=== PATIENT | female | born 1985 | race Caucasian/White ===

== ENCOUNTER 2019-11-12 12:41 | Outpatient (REF) | payer OTHER, SELFPAY | END 2019-11-12 12:42 | disposition home or self-care (01) | LOC: HO.LAB 12:41 | PROVIDERS: PCP Internal Medicine; Visit Provider Internal Medicine | DX: Z20.828 Contact with and (suspected) exposure to other viral communicable diseases (principal) | CPT/HCPCS: 36415; 87635 ==

== ENCOUNTER 2019-12-15 14:22 | Outpatient (REF) | payer OTHER, SELFPAY | END 2019-12-15 14:23 | disposition home or self-care (01) | LOC: HO.LAB 14:22 | PROVIDERS: Visit Provider Internal Medicine | DX: Z20.828 Contact with and (suspected) exposure to other viral communicable diseases (principal) | CPT/HCPCS: C9803; U0003 ==

== ENCOUNTER 2020-02-09 15:53 | Outpatient (REF) | payer OTHER, SELFPAY | END 2020-02-09 15:54 | disposition home or self-care (01) | LOC: HO.LAB 15:53 | PROVIDERS: Visit Provider Internal Medicine | DX: Z20.828 Contact with and (suspected) exposure to other viral communicable diseases (principal) | CPT/HCPCS: C9803; U0003 ==

== ENCOUNTER 2020-05-14 19:20 | Emergency (ER) | payer OTHER, SELFPAY ==
--- NOTE | ~2020-05-14 | CT_ITS ---
EXAMINATION: CT HEAD WITHOUT CONTRAST CT CERVICAL SPINE WITHOUT CONTRAST CLINICAL INFORMATION: Possible fall. COMPARISON: None TECHNIQUE: Multidetector volumetric CT imaging of the head and cervical spine is acquired without intravenous contrast administration. Postprocessing is performed at a dedicated workstation. Multiplanar reformatted images are submitted. This CT scan was performed using dose optimization techniques as appropriate to a performed exam including the following: *Automated exposure control. *Adjustment of mA and/or kV according to patient size (this includes techniques or standardized protocols for targeted exams were dose is matched to indication/reason for exam; i.e. extremities or head). *Use of iterative reconstruction technique. DLP: 1282 mGy-cm FINDINGS: CT HEAD: The ventricles and sulci are normal. There is no evidence of acute intracranial hemorrhage, midline shift, mass effect, acute territorial infarction or abnormal extra-axial fluid collection. [id number] matter differentiation is well preserved. No abnormal parenchymal attenuation. The osseous calvarium is intact. Visualized paranasal sinuses and mastoid air cells are well aerated. Calvarial soft tissues are grossly unremarkable without evidence of significant swelling or hematoma. CT CERVICAL SPINE: Patient's neck is rotated resulting in asymmetrical scan sections. The vertebral body heights and alignment are maintained. Atlantoaxial and atlanto-occipital alignments are normal. Posterior elements are intact and in normal alignment. Mild degenerative changes are noted at C5-C6 with mild narrowing of the intervertebral disc space and minimal marginal hypertrophic endplate spurring. No evidence of tight central canal or neural foraminal stenosis. The airway is patent. There is no evidence of prevertebral soft tissue swelling. The thyroid gland and lung apices are unremarkable. CT/CT cervical spine wo con IMPRESSION: 1. No evidence of acute intracranial abnormality. 2. No evidence of acute fracture or subluxation in the cervical spine.
[2020-05-14 19:24] VITALS: BP 136/84; PULSE 84; RESP 16; O2SAT 97; BMI 25.1
--- NOTE | 2020-05-14 20:03 | ED.GENADULT ---
HPI - General Adult General Chief complaint: ETOH/Substance Use Stated complaint: etoh Time Seen by Provider: 05/14/20 23:02 Source: patient Mode of arrival: ambulatory Limitations: no limitations History of Present Illness HPI narrative: Patient brought to ED for alcohol intoxication. Father found patient on the ground. Does not know if patient fell.. Patient self admits to drinking. Is not suicidal or homicidal. Related Data Allergies Allergy/AdvReac Type Severity Reaction Status Date / Time No Known Allergies Allergy Unverified 10/28/19 19:47 [No Known Allergies*] Review of Systems Review of Systems: Yes all other systems are reviewed and are negative Constitutional: Constitutional: Reports as per HPI and Reports no additional constitutional complaints Eyes: Eyes: Reports as per HPI and Reports no additional eye complaints ENT: Reports system reviewed and no additional complaints, except as documented and Reports as per HPI Cardiovascular: Cardiovascular: Reports as per HPI and Reports no additional cardiovascular complaints Respiratory: Respiratory: Reports as per HPI and Reports no additional respiratory complaints Gastrointestinal: Gastrointestinal: Reports as per HPI and Reports no additional gastrointestinal complaints Musculoskeletal: Musculoskeletal: Reports no additional musculoskeletal complaints and Reports as per HPI Neurologic: Reports system reviewed and no additional complaints, except as documented and Reports as per HPI Psychiatric: Psychiatric: Reports no additional psychiatric complaints and Reports as per HPI [facility] Past Medical History Medical History (Updated 05/14/20 @ 19:28 by Ginny Orellana) EtOH dependence Social History Social History Advance Directives: No Physical Exam Vital Signs: Vital Signs: Last Vital Signs Pulse 84 05/14/20 19:24 Resp 16 05/15/20 00:01 BP 136/84 05/14/20 19:24 Pulse Ox 97 05/14/20 19:24 Body Mass Index 25.1 Const: Other: Alcohol on breath General: cooperative, healthy appearing, comfortable, no acute distress, well developed, alert, awake and Physically active Orientation/consciousness: patient oriented x3 HENMT: Head: Yes normal to inspection, Yes No palpable skull fracture present, Yes normocephalic, Yes atraumatic, No abrasion, No Nava's sign, No contusion, No cranial bruits, No hematoma, No laceration, No occipital foramen tenderness, No palpable skull fracture, No raccoon eyes, No scalp lesion, No scalp tenderness, No Temporal artery tenderness present and No periorbital ecchymosis Eyes: General: appearance normal, both eyes and all related structures Neck: Neck: Yes normal visual inspection, Yes full ROM, Yes no lymphadenopathy, Yes no meningeal signs, Yes trachea midline, Yes supple and No tender Chest: Chest palpation & inspection: normal inspection of the chest and normal palpation of entire chest wall Resp: Effort & Inspection: normal respiratory effort and able to speak in complete sentences Auscultation: clear to auscultation bilaterally Cardio: Jugular venous distension: no JVD Heart sounds: S1 normal heart sound present and S2 normal heart sound present GI: Inspection: Yes normal to inspection and No abdominal wall ecchymosis Palpation (GI): Soft to palpation, not firm, nontender, no guarding and not rigid : General: No CVA tenderness and Yes no CVA tenderness Back/Spine/Pelvis: Back: no CVA tenderness, No CVA tenderness and No back tenderness Skin: General skin exam: no rashes or lesions noted and elasticity normal Neuro: Other: Alcohol on breath but not intoxicated. General: patient oriented x3, no meningeal signs and CN's II-XI intact bilaterally Cranial nerves: Yes CN's II-XII intact bilaterally Extrem: General: Yes normal to inspection and Yes full ROM Psych: Appearance: grossly normal, well kempt and not disheveled Course Course Course Narrative: Patient refusing blood draw for alcohol level. Patient willing to give urine. EMS note stating patient was found on the ground. Will do head CT C-spine make sure there is no brain bleed Reevaluation(s) Reevaluation #1: Patient images came back negative for neck fracture or brain bleed. 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 Patient alert oriented x3 with normal gait. Reevaluation #2: Patient is alert oriented x3 with normal gait. Patient's boyfriend Cheng came to the ED and picked her up. Patient does not want detox. Medical Decision Making MDM Narrative Medical decision making narrative: Alcohol abuse Lab Data Labs: Lab Results 05/14/20 05/14/20 05/14/20 Range/Units 19:57 19:57 19:57 Urine Color YELLOW Urine Appearance CLEAR Urine pH 5.5 (5.0-8.0) Ur Specific [place] <= 1.005 (1.005-1.025) Urine Protein NEG (NEG-TRACE) MG/DL Urine Glucose (UA) NEG (NEG) MG/DL Urine Ketones NEG (NEG) MG/DL Urine Blood TRACE (NEG) Urine Nitrite NEG (NEG) Ur Leukocyte Esterase NEG (NEG) Urine RBC 0-2 (0) /HPF Urine WBC 0 (0-4) /HPF Ur Squamous Epith Cells NONE /LPF Urine Bacteria NONE /LPF Urine Test NEGATIVE (NEGATIVE) Urine Opiates Screen Not Detected (Not Detect) Ur Barbiturates Screen Not Detected (Not Detect) Ur Phencyclidine Scrn Not Detected (Not Detect) Ur Amphetamines Screen Not Detected (Not Detect) U Benzodiazepines Scrn Not Detected (Not Detect) Urine Cocaine Screen Not Detected (Not Detect) U Marijuana (THC) Screen POSITIVE H (Not Detect) Discharge Plan Discharge Clinical Impression: Alcohol abuse Patient Disposition: Home, Self-Care Instructions: Abuse of Alcohol (ED) Additional Instructions: Return to the ED for any suicidal/homicidal ideation, auditory/visual hallucinations, or or any other complaints. Interventions: ED Discharge Assessment Last Done: 05/15/20 00:02 Discharge Date/Time: 05/15/20 00:04 Print Language: [place]ese
[2020-05-14 20:06] LABS: Appearance Urine CLEAR; Color Urine YELLOW; Glucose Urine UA NEG (NEG); Leukocyte Esterase Urine NEG (NEG); Nitrite Urine NEG (NEG); PH 5.5 (5.0-8.0); Specific Gravity - Urine <= 1.005 (1.005-1.025); Urine Blood TRACE (NEG); Urine Ketones NEG (NEG); Urine Protein NEG (NEG-TRACE)
[2020-05-14 20:08] LABS: UPreg QC Valid YES; Urine Pregnancy NEGATIVE (NEGATIVE)
[2020-05-14 20:15] LABS: RBC Urine 0-2 /HPF (0); WBC Urine 0 /HPF (0-4)
--- NOTE | 2020-05-14 20:36 | PC.NURSE ---
PT AMBULATORY WITH UNSTEADY GAIT. PT TRIED TO LEAVE, WALKED DOWN HALLWAY TOWARDS [place], BROUGHT BACK BY RN. PT ASKED TO LEAVE SEVERAL TIMES. PLAN IS TO LET PT CALL FOR [facility] FOLLOWING CT SCAN OF HEAD. BOYFRIEND CALLED, ASKING ABOUT PATIENT.
--- NOTE | 2020-05-14 21:18 | MHC.RECOVSUP ---
patient did not respond when tried to offer services.
[2020-05-14 21:19] LABS: Amphetamine Screen Urine Not Detected (Not Detect); Barbiturates, Urine Not Detected (Not Detect); Benzodiazepines Screen Urine Not Detected (Not Detect); Cannabinoid Screen Urine POSITIVE (Not Detect); Cocaine Screen Urine Not Detected (Not Detect); Opiate Screen Urine Not Detected (Not Detect); Phencyclidine Screen Urine Not Detected (Not Detect)
--- NOTE | 2020-05-14 21:27 | PC.NURSE ---
PT SLEEPING, HAS BEEN MORE COOPERATIVE SINCE SHE WAS MADE AWARE OF PLAN TO DISCHARGE FOLLOWING CT SCAN.
[2020-05-15 00:01] VITALS: RESP 16
== END 2020-05-15 00:04 | disposition home or self-care (01) ==
PROVIDERS: Physician Assistant; Emergency Provider Internal Medicine
DX: F10.20 Alcohol dependence, uncomplicated (principal); Y90.9 Presence of alcohol in blood, level not specified
CPT/HCPCS: 70450; 72125; 80307; 81001; 81025; 99284